=== PATIENT | male | born 1960 | race Caucasian/White ===

== ENCOUNTER 2019-05-02 18:05 | Inpatient (IN) | payer BC ==
[2019-05-02] VITALS (191 sets, daily range): BP systolic 144; BP diastolic 108; PULSE 144; TEMP 98.3; O2SAT 93–100
[~2019-05-02] VITALS: Ht 185.4 cm; Wt 84.8 kg
[2019-05-02] MEDS ORDERED: NORVASC 5MG5 MG/TAB PO ×2 (18:34→20:51)
[2019-05-02 18:40] LABS: BASO % 0.5 % (0.0-2.0); EOS # 0.2 (0.0-0.7); GRAN % 56.5 % (42.2-75.2); HEMATOCRIT 41.2 % (42.0-52.0); LYMPH # 2.7 (1.2-3.4); LYMPH % 30.1 % (20.0-51.0); MEAN CELL VOLUME 91 fl (80.0-100.0); MEAN CORPUSCULAR HEMOGLOBIN 33 pg (27.0-31.0); MEAN CORPUSCULAR HGB CONC 36 g/dl (33.0-37.0); MEAN PLATELET VOLUME 9.1 fl (7.4-10.4); MONO # 0.9 (0.1-0.6); MONO % 10.7 % (1.7-9.3); PLATELET COUNT 186 K/mm3 (130-400); RED BLOOD COUNT 4.52 M/mm3 (4.20-5.60); REDCELL DISTRIBUTION WIDTH-CV 11.7 % (11.5-14.5)
[2019-05-02 18:49] LABS: ALANINE AMINOTRANSFERASE 30 U/L (21-72); ALBUMIN 4.8 gm/dL (3.5-5.0); ALKALINE PHOSPHATASE 88 U/L (50-136); ANION GAP 16 mmol/L (7-16); AST,SGOT 44 U/L (15-37); BILIRUBIN,TOTAL 0.6 mg/dL (0.0-1.0); BLOOD UREA NITROGEN 15 mg/dL (9-20); CALCIUM 9.9 mg/dL (8.4-10.2); CARBON DIOXIDE 22 mmol/L (22-30); CHLORIDE 97 mmol/L (98-107); GLUCOSE 113 mg/dL (74-106); MAGNESIUM 1.9 mg/dL (1.6-2.3); PHOSPHOROUS 3.3 mg/dL (2.5-4.5); POTASSIUM 3.4 mmol/L (3.4-5.0); SODIUM 135 mmol/L (137-145); TOTAL PROTEIN 8.9 gm/dL (6.4-8.2)
[2019-05-02 18:53] LABS: INR 0.9 (0.8-3.0); PROTHROMBIN TIME 10.1 SECONDS (9.7-12.8)
[2019-05-02] MEDS ORDERED: BENICAR HCT 12.1 TA1 PO (18:54)
[2019-05-02 18:55] LABS: PARTIAL THROMBOPLASTIN TIME 28.3 SECONDS (26.0-37.0)
[2019-05-02 19:11] LABS: TROPONIN-I < 0.012 ng/mL (0.000-0.035)
[2019-05-02] MEDS ORDERED: BENICAR HCT 251 TAB PO (20:51)
[2019-05-02 21:55] LABS: COLLECTION METHOD CLEAN CATCH
[2019-05-02 22:01] LABS: PH 6 (5-8); SQUAMOUS EPITHELIAL None Seen /hpf; URINE APPEARANCE Clear; URINE BACTERIA None Seen /hpf; URINE BILIRUBIN Negative (NEGATIVE); URINE BLOOD 1+ (NEGATIVE); URINE COLOR Colorless; URINE GLUCOSE Negative (NEGATIVE); URINE KETONE Trace (NEGATIVE); URINE LEUKOCYTE ESTERASE Negative (NEGATIVE); URINE NITRATE Negative (NEGATIVE); URINE PROTEIN(semi-quant) Negative (NEGATIVE); URINE RBC 0-2 /hpf; URINE UROBILINOGEN Negative (NEGATIVE); URINE WBC 0-2 /hpf
[2019-05-02 22:12] LABS: TRICYCLIC ANTIDEPRESS URINE NEGATIVE
[2019-05-02 22:18] LABS: TROPONIN-I 3 HR POST INITIAL < 0.012 ng/mL (0.000-0.034)
[2019-05-02 22:36] LABS: THYROID STIMULATING HORMONE 0.993 uIU/mL (0.465-4.680)
[2019-05-03] VITALS (673 sets, daily range): BP systolic 101–156; BP diastolic 70–94; PULSE 56–71; TEMP 97.5–98.4; O2SAT 93–100
[2019-05-03 05:05] LABS: BASO % 0.2 % (0.0-2.0); EOS # 0.2 (0.0-0.7); EOS % 1.9 % (0-4.0); GRAN # 4.7 (1.4-6.5); HEMATOCRIT 38.4 % (42.0-52.0); HEMOGLOBIN 13.6 g/dl (13.5-18.0); LYMPH # 2.8 (1.2-3.4); LYMPH % 32.2 % (20.0-51.0); MEAN CELL VOLUME 93 fl (80.0-100.0); MEAN CORPUSCULAR HEMOGLOBIN 33 pg (27.0-31.0); MEAN CORPUSCULAR HGB CONC 35 g/dl (33.0-37.0); MONO # 1.1 (0.1-0.6); MONO % 12.5 % (1.7-9.3); PLATELET COUNT 199 K/mm3 (130-400); RED BLOOD COUNT 4.13 M/mm3 (4.20-5.60); REDCELL DISTRIBUTION WIDTH-CV 11.9 % (11.5-14.5)
[2019-05-03 05:15] LABS: CALCIUM 9.2 mg/dL (8.4-10.2); CREATININE, serum 0.62 (0.66-1.25); POTASSIUM 4.2 mmol/L (3.4-5.0)
--- NOTE | 2019-05-03 11:38 | NUR ---
stopped by and briefly visited with patient while family was in room.
--- NOTE | 2019-05-03 13:25 | NUR ---
SW met with the patient to discuss discharge plan. The patient lives [facility] with his , Bertha. He reports independence with ADLs and does not have any DME. The patient's PCP is Dr. Mahesh Mcclain and he receives his medications at the [facility]. He reports no difficulties obtaining his meds. The patient does not have advanced directives and he was not interested in completing them at this time. The patient plans to return home with his upon discharge. No additional needs at this time.
--- NOTE | 2019-05-03 14:30 | NUR ---
Patient up to room 319 via wheelchair by BRITTANY Buchanan. patient oriented to room. Family at bedside.
--- NOTE | 2019-05-03 15:30 | NUR ---
patient assessment complete. Patient is A&O, ambulating independently in room. Denies chest pain, N/V, dizziness, palpitations, SOB. LFA INT IV patent with no complications. Patient on room air and tele. No complaints at this time. Pt denies needs. Call light within reach.
--- NOTE | 2019-05-03 20:30 | NUR ---
Initial shift assessment done- denies pain, denies SOB/palpitations, VSS, Tele on, states hopes to get some sleep tonight- no requests.
[2019-05-04] VITALS (9 sets, daily range): BP systolic 135–175; BP diastolic 72–93; PULSE 54–69; TEMP 97.6–98.5
--- NOTE | 2019-05-04 04:45 | NUR ---
Quiet night- VSS, no requests, no chest pain/SOB
[2019-05-04 07:44] LABS: BASO % 0.4 % (0.0-2.0); EOS # 0.2 (0.0-0.7); EOS % 2.5 % (0-4.0); GRAN # 4.2 (1.4-6.5); GRAN % 57.5 % (42.2-75.2); HEMATOCRIT 37.1 % (42.0-52.0); HEMOGLOBIN 13.1 g/dl (13.5-18.0); LYMPH # 2.1 (1.2-3.4); LYMPH % 28.5 % (20.0-51.0); MEAN CELL VOLUME 94 fl (80.0-100.0); MEAN CORPUSCULAR HEMOGLOBIN 33 pg (27.0-31.0); MEAN CORPUSCULAR HGB CONC 35 g/dl (33.0-37.0); MEAN PLATELET VOLUME 9.2 fl (7.4-10.4); MONO # 0.8 (0.1-0.6); MONO % 10.7 % (1.7-9.3); PLATELET COUNT 171 K/mm3 (130-400); RED BLOOD COUNT 3.96 M/mm3 (4.20-5.60); REDCELL DISTRIBUTION WIDTH-CV 11.7 % (11.5-14.5)
[2019-05-04 07:52] LABS: PROTHROMBIN TIME 12.1 SECONDS (9.7-12.8)
[2019-05-04 07:57] LABS: BILIRUBIN,TOTAL 1.2 mg/dL (0.0-1.0); CALCIUM 9.3 mg/dL (8.4-10.2); CREATININE, serum 0.68 (0.66-1.25); MAGNESIUM 2.4 mg/dL (1.6-2.3); POTASSIUM 3.9 mmol/L (3.4-5.0); TOTAL PROTEIN 7.3 gm/dL (6.4-8.2)
--- NOTE | 2019-05-04 10:15 | NUR ---
Pt assessment completed and charted. Morning medications administered per DEC. Pt denies chest pain, N/V, dizziness, SOB. Pt ambulating in room. Pt LFA INT IV patent. No complaints or requests at this time. Call light within reach.
--- NOTE | 2019-05-04 18:32 | NUR ---
Patient has had uneventful day, no requests, needs or complaints at this time.
--- NOTE | 2019-05-04 20:00 | NUR ---
Shift assessment complete. Pt resting in bed, awake, a&o, cooperative c cares. Pt denies pain or other c/o. INT patent. Tele in place. Pt denies needs at this time. Call light in reach, will monitor.
[2019-05-05] VITALS (10 sets, daily range): BP systolic 138–178; BP diastolic 76–88; PULSE 53–82; TEMP 98.1–98.6
[2019-05-05 06:54] LABS: BASO # 0.1 (0.0-0.2); BASO % 0.6 % (0.0-2.0); EOS # 0.2 (0.0-0.7); EOS % 2.1 % (0-4.0); GRAN # 4.9 (1.4-6.5); HEMATOCRIT 39.3 % (42.0-52.0); HEMOGLOBIN 13.8 g/dl (13.5-18.0); LYMPH # 1.9 (1.2-3.4); LYMPH % 24.2 % (20.0-51.0); MEAN CELL VOLUME 94 fl (80.0-100.0); MEAN CORPUSCULAR HEMOGLOBIN 33 pg (27.0-31.0); MEAN CORPUSCULAR HGB CONC 35 g/dl (33.0-37.0); MEAN PLATELET VOLUME 9.5 fl (7.4-10.4); MONO # 0.9 (0.1-0.6); MONO % 11.7 % (1.7-9.3); PLATELET COUNT 192 K/mm3 (130-400); REDCELL DISTRIBUTION WIDTH-CV 11.6 % (11.5-14.5)
[2019-05-05 07:02] LABS: CALCIUM 9.4 mg/dL (8.4-10.2); CREATININE, serum 0.73 (0.66-1.25); POTASSIUM 3.8 mmol/L (3.4-5.0)
--- NOTE | 2019-05-05 08:20 | NUR ---
Report received from BRITTANY Grossman. Pt refusing lexiscan this morning. Pt approached this nurse asking if we could come back and explain the procedure. per , Stan from radiology expressed to the patient that this was "the worst test and you will feel awful, your arms will hurt and your legs will hurt". The said she tried to explain the way it works b/c she has had one. Reina from [facility] and this nurse went in and explained the procedure to the pt again in a more appropriate way. According to the patient "I'm not in the mood anymore, I will just come back". Paged Dr. Dugan in hopes that he can speak with patient.
--- NOTE | 2019-05-05 09:36 | NUR ---
Patient has agreed to lexiscan this morning, they will call when they are ready for him. chatted with patient about lexiscan.
--- NOTE | 2019-05-05 09:41 | NUR ---
Patient assessment completed and charted. Pt denies pain, chest pain, N/V, dizziness, SOB, palpitations. Ambulating in room, on room air. tele in place. LFA INT IV patent, no complications. Denies needs at this time. Morning medications administered per DEC. Confirmed w/ Mary that meds were ok to give. No other needs at this time. Call light within reach.
--- NOTE | 2019-05-05 11:30 | NUR ---
Patient down for lexiscan at this time.
--- NOTE | 2019-05-05 13:00 | NUR ---
[facility] Denies needs at this time. Ready to order lunch.
[2019-05-05] MEDS ORDERED: ELIQUIS 5MG PO (14:16)
[2019-05-05] MEDS ORDERED: BETAPACE 80MG80 MG PO (14:17)
[2019-05-05] MEDS ORDERED: NORVASC 10MG10 MG PO (14:17)
[2019-05-05] MEDS ORDERED: FOLIC ACID 11 MG/TA1 PO (14:18)
[2019-05-05] MEDS ORDERED: DUO-KAPS1 CAP PO (14:18)
[2019-05-05] MEDS ORDERED: THIAMINE 1100 MG/TAB PO (14:18)
--- NOTE | 2019-05-05 16:26 | NUR ---
Patient discharged. Discharge instructions discussed and reviewed. All questions answered. INT IV discontinued by BRITTANY Means. No other questions. Patient ambulated out with family.
== END 2019-05-05 16:00 | disposition home or self-care (01) | DRG 310 ==
LOC: COL.ER 18:05 → MEDICAL 19:18 → ICU 19:18 → MEDICAL 05-03 14:18
PROVIDERS: Emergency Medicine; Hospitalist; Nurse Practitioner Family; ADMIT Internal Medicine
DX: I48.91 Unspecified atrial fibrillation (principal); E87.6 Hypokalemia; I10 Essential (primary) hypertension; F10.20 Alcohol dependence, uncomplicated
CPT/HCPCS: 99222-AI; 99231-AI; 99239; A9500; J0153; J1650; J2785; J3475; J7030

== ENCOUNTER 2019-07-25 08:32 | Day surgery (SDC) | payer BC ==
[~2019-07-25] VITALS: Ht 185.4 cm; Wt 84.4 kg
[~2019-07-25 08:32] MED LIST: BENICAR HCT 12.1 TA1 PO; BENICAR HCT 251 TAB PO; BETAPACE 80MG80 MG PO; DUO-KAPS1 CAP PO; ELIQUIS 5MG PO; FOLIC ACID 11 MG/TA1 PO; NORVASC 10MG10 MG PO; NORVASC 5MG5 MG/TAB PO; THIAMINE 1100 MG/TAB PO
[2019-07-25 09:23] VITALS: BP 161/88; PULSE 57; TEMP 98.1
[2019-07-25 10:40] VITALS: BP 124/70; PULSE 56; TEMP 97.9
--- NOTE | 2019-07-25 10:40 | NUR ---
Pt returned via cart to [facility]. Ambulated to recliner in bay with SBA. Warm blankets given and legs elevated. VSS-see flowsheet. Daughter brought to room to visit. Given water per request. Denied needs or concerns at this time. Call light in reach. Vitals monitor on to assess Q15.
[2019-07-25 10:55] VITALS: BP 120/72; PULSE 56
[2019-07-25 11:10] VITALS: BP 123/69; PULSE 47
[2019-07-25 11:25] VITALS: BP 127/75; PULSE 48
--- NOTE | 2019-07-25 11:30 | NUR ---
VS remain stable. Tolerated water, did not want to eat at this time. IV removed from right hand, pressure dressing applied. Catheter tip intact. Discharge teaching completed, pt and daughter verbalized understanding. Pt dressed and taken via wheelchair to private vehicle for dc home with daughter, January.
== END 2019-07-25 11:30 | disposition home or self-care (01) ==
LOC: SDCO 08:32
DX: Z12.11 Encounter for screening for malignant neoplasm of colon (principal); Z86.010 Personal history of colon polyps; D12.2 Benign neoplasm of ascending colon; I48.91 Unspecified atrial fibrillation; Z79.01 Long term (current) use of anticoagulants; E78.00 Pure hypercholesterolemia, unspecified; I05.9 Rheumatic mitral valve disease, unspecified; I10 Essential (primary) hypertension
CPT/HCPCS: J2250; J3010; J7030